=== PATIENT | female | born 1975 | race Native Hawaiian/Other Pacific Islander ===

== ENCOUNTER 2021-07-16 00:39 | Emergency (ER) | payer OTHER | END 2021-07-16 01:10 | disposition home or self-care (01) | LOC: ED 00:39 | DX: R14.3 Flatulence (principal); R10.9 Unspecified abdominal pain; Z53.21 Procedure and treatment not carried out due to patient leaving prior to being seen by health care provider | CPT/HCPCS: 99281 ==